=== PATIENT | female | born 1960 | race Two or more races ===

== ENCOUNTER 2020-11-07 11:58 | Emergency (ER) | payer OTHER, MEDICAID ==
[~2020-11-07] VITALS: Ht 157.5 cm; Wt 68.0 kg
[2020-11-07 12:11] VITALS: BP 125/54
[2020-11-07] MEDS ORDERED: SODIUM CHLORIDE 0.9% 1,000 ML IVB ONE (12:30)
[2020-11-07 13:28] LABS: Basophils # (auto) 0 10 ^3/uL (0-0.2); Basophils % (auto) 0.7 % (0.0-2.0); Eosinophils # (auto) 0.1 10 ^3/uL (0-0.8); Hematocrit 33.3 % (36.0-46.0); Hemoglobin 11.3 g/dL (12.2-16.2); Lymphocytes # (auto) 1.4 10 ^3/uL (0.4-5.4); Lymphocytes % (auto) 25.9 % (10.0-50.0); Mean Corpuscular Hemoglobin 29.6 pg (28.0-32.0); Mean Corpuscular Volume 86.9 fL (80.0-100.0); Monocytes # (auto) 0.2 10 ^3/uL (0-1.3); Monocytes % (auto) 4.1 % (0.0-12.0); Neutrophils # (auto) 3.8 10 ^3/uL (1.6-8.6); Neutrophils % (auto) 68.3 % (37.0-80.0); Platelet Count (auto) 205 10^3/uL (140-450); Red Blood Cells 3.83 10^6/uL (4.0-5.20); Red Cell Distribution Width 13.4 % (11.8-14.3); White Blood Cell 5.6 10^3/uL (4.4-10.8)
[2020-11-07 13:47] LABS: Albumin 3.3 g/dL (3.4-5.0); Calcium 8.9 mg/dL (8.5-10.1); Potassium 4.1 mmol/L (3.5-5.1)
[2020-11-07 13:50] LABS: BUN/Creatinine Ratio 22.3; Bilirubin, Total 0.5 mg/dL (0.2-1.0); Total Protein 8.2 g/dL (6.4-8.2)
[2020-11-07 15:27] LABS: Urine Amorphous Crystal FEW /hpf (None Seen); Urine Bacteria MOD /hpf (None Seen); Urine Blood Negative /uL (Negative); Urine Specific Gravity 1.012 (1.001-1.035); Urine WBC 35 /hpf (0 - 5)
== END 2020-11-07 15:48 | disposition home or self-care (01) ==
LOC: ER 11:58 → EDBD 11:58 → ER 15:48
DX: S09.8XXA Other specified injuries of head, initial encounter (principal); E11.9 Type 2 diabetes mellitus without complications; R55 Syncope and collapse; X58.XXXA Exposure to other specified factors, initial encounter; Y93.89 Activity, other specified; Y92.89 Other specified places as the place of occurrence of the external cause; Y99.8 Other external cause status
CPT/HCPCS: 36415; 70450; 70486; 71045; 80053; 81001; 83735; 85025; 93005; 96360; 99285; J7030

== ENCOUNTER → 2024-06-18 | Outpatient (CLI) | payer OTHER, MEDICAID | END | disposition home or self-care (01) | LOC: LAB 11:00 | PROVIDERS: ATTEND Obstetrics & Gynecology | DX: R87.810 Cervical high risk human papillomavirus (HPV) DNA test positive (principal) ==